=== PATIENT | male | born 1975 | race Two or more races ===

== ENCOUNTER 2024-05-12 03:50 | Emergency (ER) | payer OTHER ==
[2024-05-12 04:09] VITALS: BMI 33.0
[2024-05-12] MEDS: LACTATED RINGERS SOLUTION 1000 ML INFUS.BAG IV ONE (05:10)
[2024-05-12 06:15] LABS: POTASSIUM 4.6 mmol/L (3.5-5.1)
[2024-05-12 06:16] LABS: BASO % 0.9 % (0-2.0); EOS % 3.8 % (0-4.5); HEMATOCRIT 50.5 % (35.4-49); HEMOGLOBIN 16.4 GM/dL (11.7-16.9); LYMPH % 43.8 % (8-40); MCH 29.9 pg (25.7-33.7); MCHC 32.4 g/dl (32.0-35.9); MEAN CELL VOLUME 92.2 fl (80-96); MEAN PLT VOLUME 8.6 fl (7.5-11.1); MONO % 5.8 % (3.8-10.2); NEUT % 45.7 % (42.8-82.8); PLATELET COUNT 330 10^3/uL (134-434); RBC 5.48 M/mm3 (4.00-5.60); RDW 14.3 % (11.9-15.9); WHITE BLOOD COUNT 10.7 K/mm3 (4.0-10.0)
[2024-05-12 06:17] LABS: CALCIUM 9.9 mg/dL (8.5-10.1)
[2024-05-12 06:18] LABS: ALBUMIN 4.1 g/dl (3.4-5.0); BLOOD UREA NITROGEN 8.8 mg/dL (7-18)
[2024-05-12 06:21] LABS: CREATININE 1.6 mg/dL (0.55-1.3)
[2024-05-12 06:22] LABS: BILIRUBIN,TOTAL 0.4 mg/dL (0.2-1)
[2024-05-12 06:23] LABS: TOT PROT 7.6 g/dl (6.4-8.2)
[2024-05-12] MEDS: FOLIC ACID INJECTION - 1 MG, THIAMINE HCL 100 MG, MULTIVIT INJECTION ADULT 10 ML in SOD... IVPB ONE (07:34)
[2024-05-12 07:36] VITALS: TEMP 98
[2024-05-12 08:23] VITALS: RESP 18
[2024-05-12 11:48] VITALS: BP 121/74; PULSE 95
== END 2024-05-12 11:50 | disposition home or self-care (01) ==
LOC: JER 03:50
PROC: 3E033GC Introduction of Other Therapeutic Substance into Peripheral Vein, Percutaneous Approach (ICD-10-PCS; principal; 2024-05-12)
DX: F10.920 Alcohol use, unspecified with intoxication, uncomplicated (principal); N17.9 Acute kidney failure, unspecified; R46.4 Slowness and poor responsiveness; Y90.9 Presence of alcohol in blood, level not specified
CPT/HCPCS: 36415; 80053; 80307; 82962; 85025; 93005; 93010; 99284-25